=== PATIENT | male | born 1990 | race Caucasian/White ===

== ENCOUNTER 2023-01-20 15:34 | Emergency (ER) | payer OTHER, BC, SELFPAY ==
[2023-01-20 15:35] VITALS: BP 135/87; PULSE 97; RESP 22; TEMP 36.8; O2SAT 99; BMI 38.0
--- NOTE | 2023-01-20 15:48 | EX.ED.UPPERE ---
HPI History of Present Illness Chief Complaint: Upper Extremity Injury Detail of Chief Complaint: Injury to right hand and left hand Informant: patient Narrative Narrative: Patient presents to the emergency department with injury to his right hand as well as to his left hand. Patient states that he was working on a press when the press came down and crushed his right index and middle fingers. Patient also had his left long finger injured. Unsure of his last tetanus shot. He is right-hand dominant. This is Workmen's Comp. type injury. PFSH PFSH Medical History no medical history Home Medications cephalexin 500 mg capsule 500 mg PO Q6 #40 CAPSULES 01/20/23 [Rx Last Taken Unknown] hydrocodone-acetaminophen 5-325mg 5mg-325mg 1 tab PO Q4H PRN PRN Pain 3 days #15 TABLETS 01/20/23 [Rx Last Taken Unknown] Allergy/AdvReac Type Severity Reaction Status Date / Time Penicillins [PCN] Allergy Other Verified 01/20/23 15:38 Social History Smoking Status: Unknown if ever smoked ROS ROS ED Review of Systems ROS Unobtainable: other Constitutional Constitutional ED: Reports lethargy; Denies chills, fever(s), sweats or weight loss Eyes Eyes: Denies blurry vision, change in vision or diplopia ENT ENT ED: Denies rhinorrhea or sore throat Cardiovascular Cardiovascular: Denies chest pain, orthopnea or racing heartbeat Respiratory/Chest Respiratory/Chest: Denies cough, dyspnea, dyspnea on exertion, orthopnea or sputum Gastrointestinal Gastrointestinal: Denies abdominal pain, diarrhea, nausea or vomiting Genitourinary Genitourinary ED: Denies dysuria, hematuria or urinary frequency Musculoskeletal Musculoskeletal: Reports other Details: Injury to right and left long finger and right index finger. ; Denies arthralgias, back pain, myalgias or neck pain Integumentary Denies abscess, Abrasions or rash Neurologic Neurologic: Denies headache(s) or weakness Psychiatric Psychiatric: Denies anxiety, depression or suicidal thoughts Endocrine Endocrinology: Denies polydipsia, polyphagia or polyuria Hematologic/Lymphatic Hematologic/Lymphatic: Denies easy bleeding, easy bruising or lymphadenopathy Allergic/Immunologic Allergic/Immunologic ED: Denies mouth swelling, tongue swelling or urticaria EXAM Physical Exam Const Vital Signs: 01/20/23 15:35 Temperature 98.2 F Temperature Source Temporal Pulse Rate 97 Respiratory Rate 22 H Blood Pressure 135/87 H Blood Pressure Mean 103 Pulse Ox 99 Oxygen Delivery Method Room Air Positive well nourished and well developed General Appearance ED: well developed and NAD HEENT Reports TM's clear and moist mucous membranes normocephalic and atraumatic; Negative for trauma or tenderness Tympanic Membrane ED: Yes TM's clear Eyes PERRL and EOMs intact bilaterally General Eye ED: Negative for pale conjunctiva or scleral icterus Neck no lymphadenopathy, supple and no JVD General: Negative for tenderness Chest Wall inspection of chest normal and palpation of chest normal Chest: Negative for tenderness Resp normal respiratory effort and clear to auscultation bilaterally Effort and Inspection: Negative for respiratory distress or pain with movement Auscultation: Negative for rhonchi, wheezes or diminished lung sounds Cardio regular rate, regular rhythm, S1 normal heart sound, S2 normal heart sound and no murmurs Peripheral Pulses: pulses 2+ throughout GI normal to inspection, nondistended, normoactive bowel sounds, soft to palpation, non-tender, non-distended and no masses Back/Spine no CVA tenderness and no thoracic nor lumbar tenderness Extremity Extremity Narrative: Right hand-patient has severe crush injury of the distal phalanx of the index finger and long finger. There is subungual hematoma to both these fingers that is partially relieved through the sides of the fingernail. There is pallor to the distal phalanx secondary to the severe crush type injury. No significant lacerations noted. Left hand-evaluation of the left long finger does reveal diffuse soft tissue swelling over the pulp of the distal phalanx. No lacerations. General Extremety ED: Negative for edema General Extremity: Negative for edema Neuro oriented x3, CN's II-XII intact bilaterally, no sensory deficits noted and gait normal Sensorium / Orientation: awake, alert, oriented to person, oriented to place and oriented to time Motor Exam: strength 5/5 throughout and strength abnormal Psych mental status grossly normal Skin no rashes or lesions noted and no wounds MDM MDM MDM Narrative Medical decision making narrative: Patient with severe crush injuries to the right index and middle finger distal phalanx. X-ray shows comminuted fracture of the distal phalanx. Patient case discussed with who recommended transfer to tertiary care center for hand surgery to evaluate. I discussed case with hand surgeon at [facility] Dr. Celestin who recommended trephinating the nails and aluminum splints as well as pain medicine and antibiotics and follow-up with his office on Tuesday as he did not feel there could be any attempted vascular revascularization. If the patient did not feel comfortable with this he was happy to see him at [facility] and transfer. I discussed this with the patient and now he wants me to discuss case with [facility] in the [place] area because his father recently used a hand surgeon there. I spoke with [facility] surgeon on-call however he is not a hand surgeon and they do not have anybody on for hand today. We attempted to call [facility] to speak with hand surgeon there and were told that to go through the transfer line as they would not speak with this unless the patient need to be transferred there. At this time after discussing with patient further he will follow-up with orthopedic surgeon and at [facility]. I did place aluminum splints on his fingers and clean dressings. He will be started on Keflex and given a prescription for [place] for pain. Patient is advised that there is a high likelihood that he could lose his fingertips. Radiography Diagnostic Testing: Three-view x-rays of right hand obtained show comminuted fracture of the distal phalanx of the index and long fingers. Three-view x-ray of left hand obtained interpreted by myself as old avulsion fracture of the distal phalanx with soft tissue swelling over the distal phalanx. Official report from radiology pending. Discharge Plan Triage Chief Complaint: Upper Extremity Injury ED Provider: Mary Burgos Dx/Rx/DC Orders Clinical Impression: Crushing injury of finger of right hand Instructions: ED Crush Injury, Hand Prescriptions: New hydrocodone-acetaminophen [hydrocodone-acetaminophen] 5-325 mg tablet 1 tab PO Q4H PRN PRN (Reason: Pain) 3 Days Qty: 15 0RF cephalexin [cephalexin] 500 mg capsule 500 mg PO Q6 Qty: 40 0RF Primary Care Provider: Care Physician,No Primary Referrals: Care Physician,No Primary [Primary Care Provider] - Activity Restrictions/Additional Instructions: Follow-up with Dr. Celestin who is the orthopedic hand surgeon that I spoke with at [facility]. Phone number- Disposition Disposition: Home, Self Care Discharge Date/Time: 01/20/23 19:05
--- NOTE | 2023-01-20 15:53 | RAD_ITS ---
INDICATION: Right hand pain after injury. EXAMINATION/TECHNIQUE: X-RAY - RIGHT XR Hand Min 3 Views. 3 views. COMPARISON: None. FINDINGS: There are displaced fractures of the distal tuft of the second digit and the distal phalanx, tuft and diaphysis extending to the margin of the joint space of the third digit distal phalanx. There is associated soft tissue swelling. Remaining osseous structures and articular surfaces are intact. No radiopaque foreign body. RAD/Hand Min 3 Views IMPRESSION: Second and third digit distal phalanx fractures. Electronically Signed: Rayray Knight MD at 16:15 EDT ,
--- NOTE | 2023-01-20 15:55 | RAD_ITS ---
INDICATION: Left hand pain after injury. EXAMINATION/TECHNIQUE: X-RAY - LEFT XR Hand Min 3 Views. 3 views. COMPARISON: None. FINDINGS: SOFT TISSUES: No soft tissue swelling or gas. No radiopaque foreign body. BONES/JOINTS: No acute fracture or subluxation. Normal alignment. Possible old injury of the first digit distal phalanx. Preservation of the joint spaces. No sclerotic or destructive changes observed. RAD/Hand Min 3 Views IMPRESSION: No acute osseous injury. Electronically Signed: Rayray Knight MD at 16:12 EDT ,
--- NOTE | 2023-01-20 18:25 | CON.PCM.OR_ITS ---
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 [facility] Medical History no medical history Allergy/AdvReac Type Severity Reaction Status Date / Time Penicillins [PCN] Allergy Other Verified 01/20/23 15:38 Social History Smoking Status: Unknown if ever smoked Vital Signs Vital Signs Vital Signs: 01/20/23 15:35 Temperature 98.2 F Temperature Source Temporal Pulse Rate 97 Respiratory Rate 22 H Blood Pressure 135/87 H Blood Pressure Mean 103 Pulse Ox 99 Oxygen Delivery Method Room Air Weight Weight: 264 lb 9.6 oz Body Mass Index (BMI) 38.0 Physical Exam Narrative per Dr. Yepez, complete flattening of the tups of index and middle fingers, no active bleeding. Radiology Impression Hand X-Ray 01/20/23 15:53 IMPRESSION: Second and third digit distal phalanx fractures. Electronically Signed: Rayray Knight MD at 16:15 EDT , Hand X-Ray 01/20/23 15:55 IMPRESSION: No acute osseous injury. Electronically Signed: Rayray Knight MD at 16:12 EDT , Assessment & Plan Assessment/Plan (1) Crushing injury of right index finger: PLAN: 32-year-old man crush injury and tuft fractures index and middle fingers. 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 I think this would be better managed by a hand specialist or plastic surgeon with subspecialty training in hand surgery therefore I have asked Dr. Yepez to reach out to that specialist tonight to arrange for appropriate next steps in management. He understood no further questions or concerns.
[2023-01-20] MEDS: Cephalexin 250 MG Capsule 500 MG PO (18:39)
== END 2023-01-20 19:05 | disposition home or self-care (01) ==
PROVIDERS: Emergency Provider Emergency Medicine; Visit Provider Emergency Medicine
DX: S62.630A Displaced fracture of distal phalanx of right index finger, initial encounter for closed fracture (principal); S62.632A Displaced fracture of distal phalanx of right middle finger, initial encounter for closed fracture; W31.89XA Contact with other specified machinery, initial encounter; Y93.89 Activity, other specified; Y99.0 Civilian activity done for income or pay
CPT/HCPCS: 73130; 99283